=== PATIENT | female | born 1980 | race Two or more races ===

== ENCOUNTER 2024-10-20 17:38 | Emergency (ER) | payer BC ==
[~2024-10-20] VITALS: Ht 157.5 cm; Wt 62.1 kg
[2024-10-20 18:27] VITALS: TEMP 98.1
[2024-10-20] MEDS ORDERED: IBUPROFEN 600 MG TABLET ONE (18:35)
[2024-10-20] MEDS: ALBUTEROL FS 2.5 MG/3 ML VIAL.NEB NEB ONE (18:38)
[2024-10-20] MEDS: IPRATROPIUM NEB FS 0.5 MG/2.5 ML AMPUL.NEB NEB ONE (18:38)
[2024-10-20] MEDS ORDERED: IPRATROPIUM NEB FS 0.5 MG/2.5 ML AMPUL.NEB ONE (18:40)
[2024-10-20] MEDS ORDERED: ALBUTEROL FS 2.5 MG/3 ML VIAL.NEB ONE (18:40)
[2024-10-20] MEDS: IBUPROFEN 600 MG TABLET PO ONE (18:41)
[2024-10-20 18:48] VITALS: O2SAT 98
[2024-10-20 18:51] VITALS: O2SAT 98
[2024-10-20] MEDS ORDERED: PRED20TA PO (18:58)
[2024-10-20] MEDS ORDERED: ALBU18HF2 INH (18:58)
[2024-10-20 19:09] VITALS: O2SAT 99
[2024-10-20 19:51] VITALS: BP 135/85; O2SAT 99
== END 2024-10-20 19:45 | disposition home or self-care (01) ==
LOC: ER 17:44
DX: J20.9 Acute bronchitis, unspecified (principal); Z87.891 Personal history of nicotine dependence; Z88.8 Allergy status to other drugs, medicaments and biological substances
CPT/HCPCS: 71045-TC